=== PATIENT | female | born 1965 | race African-American/Black ===

== ENCOUNTER 2024-03-31 09:13 | Emergency (ER) | payer MEDICAID ==
[~2024-03-31] VITALS: Ht 170.2 cm; Wt 99.0 kg
[2024-03-31 09:34] VITALS: O2SAT 97
[2024-03-31] MEDS ORDERED: IBUP-2077 PO (11:36)
[2024-03-31] MEDS: IBUPROFEN 100MG/5ML UDC PO ONE (11:45)
[2024-03-31] MEDS: IBUPROFEN 100MG/5ML UDC PO NR (11:46)
[2024-03-31 11:49] VITALS: BP 127/66; PULSE 77; RESP 16; TEMP 36.83628; O2SAT 97
== END 2024-03-31 12:09 | disposition home or self-care (01) ==
LOC: ER 09:13
DX: S40.012A Contusion of left shoulder, initial encounter (principal); W18.39XA Other fall on same level, initial encounter; Y93.89 Activity, other specified; Y92.89 Other specified places as the place of occurrence of the external cause; Y99.8 Other external cause status
CPT/HCPCS: 73030; 73060; 99284